=== PATIENT | male | born 1995 | race Caucasian/White ===

== ENCOUNTER 2020-01-13 16:49 | Emergency (ER) | payer MEDICAID, OTHER ==
[2020-01-13 17:26] LABS: BASOPHILS % (AUTO) 0.5 %; EOSINOPHILS # (AUTO) 0.1 10^3/uL (0.0-0.7); EOSINOPHILS % (AUTO) 1.8 %; HGB - HEMOGLOBIN 15.4 g/dL (14.0-18.0); LYMPHOCYTES # (AUTO) 1.5 10^3/uL (1.5-3.5); LYMPHOCYTES % (AUTO) 23.4 %; MEAN CORPUSCULAR HEMOGLOBIN 31.3 pg (27.0-31.0); MEAN CORPUSCULAR HGB CONC 33.3 g/dL (32.0-36.0); MEAN CORPUSCULAR VOLUME 94.1 fL (80.0-94.0); MEAN PLATELET VOLUME 12.3 fL (7.4-11.4); MONOCYTES # (AUTO) 0.6 10^3/uL (0.0-1.0); PLT - PLATELET COUNT 195 10^3/uL (130-450); RED BLOOD COUNT 4.92 10^6/uL (4.70-6.10); RED CELL DISTRIBUTION WIDTH 12.9 % (12.0-15.0); WHITE BLOOD COUNT 6.3 x10^3/uL (4.8-10.8)
[2020-01-13 17:42] LABS: ACETAMINOPHEN < 10 ug/mL (10-30); ALBUMIN 4.4 g/dL (3.2-5.5); ALBUMIN/GLOBULIN RATIO 1.6 (1.0-2.2); ALKALINE PHOSPHATASE 58 IU/L (42-121); ALT ALANINE AMINOTRANSFERASE 19 IU/L (10-60); AST ASPARTATE AMINOTRANSFERASE 17 IU/L (10-42); BILIRUBIN,TOTAL 1.3 mg/dL (0.2-1.0); BUN - BLOOD UREA NITROGEN 11 mg/dL (6-20); CALCIUM 9.4 mg/dL (8.5-10.3); CARBON DIOXIDE - CO2 29 mmol/L (21-32); CHLORIDE 102 mmol/L (101-111); CREATININE 0.9 mg/dL (0.6-1.2); GLUCOSE 104 mg/dL (70-100); LIPASE 29 U/L (22-51); SALICYLATE < 6.0 mg/dL; SODIUM 139 mmol/L (135-145); TOTAL PROTEIN 7.2 g/dL (6.7-8.2)
--- NOTE | 2020-01-13 18:31 | ED Physician Documentation ---
PD HPI MHE - Stated complaint Stated Complaint: DEPRESSION - Chief complaint Chief Complaint: MHE - History obtained from History obtained from: Patient - History of Present Illness Primary symptom: Depression Timing - onset: Today, How many weeks ago (several) Pain level max: 0 Pain level now: 0 Contributing factors: Work Recently seen: Not recently seen - Additional information Additional information: 24-year-old male presents to the emergency department stating that he has had increasing depression over the past several weeks. Has been dealing with depression for years. Does not feel actively suicidal and does not have a plan. He attempted to see his doctor yesterday, but his appointment was canceled. He is feeling more anxious today, particularly about stress at work. He does use marijuana, but rarely drinks alcohol. No cigarettes. No other drug use. Is not on any medications. Review of Systems Constitutional: denies: Fever, Chills GI: denies: Vomiting, Diarrhea Skin: denies: Rash Musculoskeletal: denies: Neck pain, Back pain Neurologic: denies: Generalized weakness, Focal weakness, Numbness, Seizure, Confused PD PAST MEDICAL HISTORY - Past Medical History Past Medical History: Yes Cardiovascular: None Respiratory: None Neuro: Migraines Endocrine/Autoimmune: None GI: None : None HEENT: None Psych: Depression, Anxiety Musculoskeletal: None Derm: None - Past Surgical History Past Surgical History: No - Present Medications Home Medications: Ambulatory Orders Medication Instructions Recorded Confirmed LORazepam [Ativan] 0.5 mg PO DAILY PRN #10 tablet 01/13/20 Sertraline [Zoloft] 50 mg PO DAILY #14 tablet 01/13/20 - Social History Does the pt smoke?: Yes Smoking Status: Current every day smoker ETOH Use: Beer Does the pt have substance abuse?: No Substance Use and Type: Marijuana - Immunizations Immunizations are current?: Yes PD ED PE NORMAL - Vitals Vital signs reviewed: Yes - General General: Alert and oriented X 3, No acute distress, Well developed/nourished - HEENT HEENT: PERRL, Moist mucous membranes - Neck Neck: Supple, no meningeal sign - Cardiac Cardiac: RRR, Strong equal pulses - Respiratory Respiratory: No respiratory distress, Clear bilaterally - Abdomen Abdomen: Soft, Non tender, Non distended - Derm Derm: Warm and dry - Neuro Neuro: Alert and oriented X 3 - Psych Psych: Normal mood, Normal affect Results - Vitals Vitals: Vital Signs - 24 hr 01/13/20 01/13/20 01/13/20 16:53 16:59 19:14 Temperature 36.6 C 36.6 C 36.2 C L Heart Rate 81 74 57 L Respiratory 16 18 14 Rate Blood Pressure 136/81 H 137/74 H 122/69 O2 Saturation 100 99 99 01/13/20 21:00 Temperature Heart Rate 64 Respiratory 16 Rate Blood Pressure 130/68 O2 Saturation 100 Oxygen O2 Source Room air - EKG (time done) 1714 Rate: Rate (enter#) (66) Rhythm: NSR [place]: Normal Intervals: Normal SC QRS: Normal Ischemia: Normal ST segments - Labs Labs: Laboratory Tests 01/13/20 01/13/20 01/13/20 17:22 17:22 17:22 WBC 6.3 RBC 4.92 Hgb 15.4 Hct 46.3 MCV 94.1 H MCH 31.3 H MCHC 33.3 RDW 12.9 Plt Count 195 MPV 12.3 H Neut # (Auto) 4.0 Lymph # (Auto) 1.5 [place] # (Auto) 0.6 Eos # (Auto) 0.1 Baso # (Auto) 0.0 Absolute Nucleated RBC 0.00 Nucleated RBC % 0.0 Sodium 139 Potassium 3.7 Chloride 102 Carbon Dioxide 29 Anion Gap 8.0 BUN 11 Creatinine 0.9 Estimated GFR (MDRD) 104 Glucose 104 H Calcium 9.4 Total Bilirubin 1.3 H AST 17 ALT 19 Alkaline Phosphatase 58 Total Protein 7.2 Albumin 4.4 Globulin 2.8 Albumin/Globulin Ratio 1.6 Lipase 29 TSH 0.62 Urine Color Urine Clarity Urine pH Ur Specific [place] Urine Protein Urine Glucose (UA) Urine Ketones Urine Occult Blood Urine Nitrite Urine Bilirubin Urine Urobilinogen Ur Leukocyte Esterase Ur Microscopic Review Urine Culture Comments Salicylates < 6.0 Urine Opiates Screen Ur Oxycodone Screen Urine Methadone Screen Ur Propoxyphene Screen Acetaminophen < 10 L Ur Barbiturates Screen Ur Tricyclics Screen Ur Phencyclidine Scrn Ur Amphetamine Screen U Methamphetamines Scrn U Benzodiazepines Scrn Urine Cocaine Screen U Cannabinoids Screen Ethyl Alcohol < 5.0 01/13/20 18:30 WBC RBC Hgb Hct MCV MCH MCHC RDW Plt Count MPV Neut # (Auto) Lymph # (Auto) [place] # (Auto) Eos # (Auto) Baso # (Auto) Absolute Nucleated RBC Nucleated RBC % Sodium Potassium Chloride Carbon Dioxide Anion Gap BUN Creatinine Estimated GFR (MDRD) Glucose Calcium Total Bilirubin AST ALT Alkaline Phosphatase Total Protein Albumin Globulin Albumin/Globulin Ratio Lipase TSH Urine Color YELLOW Urine Clarity CLEAR Urine pH 6.5 Ur Specific [place] <=1.005 Urine Protein NEGATIVE Urine Glucose (UA) NEGATIVE Urine Ketones NEGATIVE Urine Occult Blood NEGATIVE Urine Nitrite NEGATIVE Urine Bilirubin NEGATIVE Urine Urobilinogen 0.2 (NORMAL) Ur Leukocyte Esterase NEGATIVE Ur Microscopic Review NOT INDICATED Urine Culture Comments NOT INDICATED Salicylates Urine Opiates Screen NEGATIVE Ur Oxycodone Screen NEGATIVE Urine Methadone Screen NEGATIVE Ur Propoxyphene Screen NEGATIVE Acetaminophen Ur Barbiturates Screen NEGATIVE Ur Tricyclics Screen NEGATIVE Ur Phencyclidine Scrn NEGATIVE Ur Amphetamine Screen NEGATIVE U Methamphetamines Scrn NEGATIVE U Benzodiazepines Scrn NEGATIVE Urine Cocaine Screen NEGATIVE U Cannabinoids Screen POSITIVE H Ethyl Alcohol PD MEDICAL DECISION MAKING - ED course Complexity details: reviewed results, re-evaluated patient, considered differential, d/w patient ED course: Social work was consulted and the patient was given resources for counseling. Tele-psychiatry was consulted as well for medication management. Patient saw tele-psychiatry, they recommend Zoloft 50 mg daily as well as Ativan as needed for anxiety. Prescriptions were given to the patient. Patient is able to contract for safety. Patient counseled regarding signs and symptoms for which I believe and urgent re-evaluation would be necessary. Patient with good understanding of and agreement to plan and is comfortable going home at this time This document was made in part using voice recognition software. While efforts are made to proofread this document, sound alike and grammatical errors may occur. Departure - Departure Disposition: 01 Home, Self Care Clinical Impression: Anxiety Depression Qualifiers: Depression Type: unspecified Qualified Code(s): F32.9 - Major depressive disorder, single episode, unspecified Condition: Good Instructions: ED Depression Follow-Up: Tony Keith MD [Provider Admit Priv/Credential] - Within 1 week Prescriptions: LORazepam [Ativan] 0.5 mg PO DAILY PRN #10 tablet PRN Reason: Anxiety Sertraline [Zoloft] 50 mg PO DAILY #14 tablet Comments: Follow-up with the counselors as directed by social work today. Return if you worsen. Follow-up with your doctor early next week as well to discuss medications. Crisis Line and is available to talk to someone [email or web address] is also available to chat with someone online if you prefer. There are also many resources on this website and apps for your phone to help with your mental health You can also text the word START to [phone] to chat with someome via text.
[2020-01-13 18:40] LABS: BILIRUBIN,URINE NEGATIVE (NEGATIVE); GLUCOSE, URINE (UA) NEGATIVE (NEGATIVE); KETONES,URINE (UA) NEGATIVE (NEGATIVE); LEUKOCYTE ESTERASE, URINE NEGATIVE (NEGATIVE); MUDS CUTOFF CONCENTRATIONS CUTOFF CONC BELOW:; NITRITE,URINE NEGATIVE (NEGATIVE); OCCULT BLOOD,URINE NEGATIVE (NEGATIVE); PH,URINE 6.5 PH (5.0-7.5); PROTEIN,URINE NEGATIVE (NEGATIVE); UROBILINOGEN,URINE 0.2 (NORMAL) E.U./dL (NORMAL)
[2020-01-13 18:42] LABS: CLARITY,URINE CLEAR (CLEAR)
[2020-01-13 18:51] LABS: AMPHETAMINE SCREEN,URINE NEGATIVE (NEGATIVE); BENZODIAZEPINES SCREEN, URINE NEGATIVE (NEGATIVE); COCAINE SCREEN URINE NEGATIVE (NEGATIVE); METHADONE SCREEN, URINE NEGATIVE (NEGATIVE); METHAMPHETAMINES SCREEN, URINE NEGATIVE (NEGATIVE); OPIATE SCREEN, URINE NEGATIVE (NEGATIVE); OXYCODONE SCREEN, URINE NEGATIVE (NEGATIVE); PROPOXYPHENE SCREEN, URINE NEGATIVE (NEGATIVE); TRICYCLIC ANTIDEPRESSANT,URINE NEGATIVE (NEGATIVE)
--- NOTE | 2020-01-13 22:34 | TELEPSYCH PHYS NOTE ---
Telepsych Note - CHIEF COMPLAINT/HX OF PRESENT ILLNESS Cheif Complaint and History of Present Illness: Name: Nghia Young : 89. 24M Date: 01/14/20 Time: 12:25AM Location of patient: [facility] Location of doctor: [facility] Length of consult: 25 This evaluation was conducted via telepsychiatry with the assistance of onsite staff Chief Complaint: Depression History of Present Illness: Pt seen via televideo with the help of onsite staff. Pt is a24 yo male who reports a hx of depression, no formal psychiatric history. Pt presents to the ED, self referred due to several week period of worsening depressive sxs. Pt cites sxs inclusive of waxing and waning depressed mood, low energy, feeling run down and heavy. Also notes increased anxiety at times. States he has been experiencing intermittent SI for the past few weeks. States he will get the fleeting thought in my head that I should disappear or put a bullet in my head. States the thoughts are scary to him. States the thoughts are always short lived. States he never entertains the thoughts and adamant that he would never act on the thoughts. He cites his gf, grandmother, mother and himself all as strong deterrents. States, I would commit myself way before I ever came close to doing that. I know suicide is not an answer to anything. States he came to the hospital to get resources and medication recommendations. States he attempted to get help from his PCP however his appt was cancelled. Yesterday he was unable to go to work for the first time due to a panic attack. States he has a good support system in his mother, grandmother and gf and have talked to them openly about how he is feeling. Also admits he has talked to them about his fleeting SI thoughts and has promised them he would not act on it. He does admit he owns a gun and pistol however states they are kept at his grandmothers home where he was staying temporarily. States he has no plans to retrieve them and states they are in a locked box and he will give his grandmother the benito. Triggers : Work stress - Relationship of great grandmother in April who raised him Recent sudden change in housing. Of note, bond underwriter was able to speak with the pts grandmother, Emily #[phone]. who confirmed that the pt has talked to her about his depression. She reports no immediate safety concerns. States he in general has waves of not feeling well typically triggered by stress. States has difficulty coping at times. And thens states other times he seems okay and happy. States she does not believe he would ever harm himself. States they have talked about his emotions and he has mentioned the fleeting thoughts and also has been adamant that is not something he would ever do. States she feels he wants help and treatment. States no hx of suicide attempts that she is aware of. States she does have his guns and will ask for the benito to the locked box. She reported no immediate safety concerns and indicated that she wanted him to get reccs for medications and outpt referrals. On ROS, pt denies AVHs, delusions nor HI.. He denies current SI. There is no current evidence of imminent danger to self. Pt denies current SI. Admits to intermittent SI, no intent nor desire to act States thoughts are fleeting and pop into his head. He able to cites strong deterrents against suicide. He is highly motivated for treatment. No previous hx of suicidality nor attempts. No previous psychiatric history. He does own guns which he and his grandmother confirms are located in her home and he states he will give her the benito to the locked box. Pts grandmother reported no immediate safety concerns. Collateral: Hospital staff and EMR. Unable to reach pts Girlfriend - Fread Jackson - #[phone], Unable to reach pts Mother Minnie [phone]. Spoke to the pts grandmother Grandmother Emily #[phone].SEE HPI. SI/attempts/Self harm: Denies hx of attempts nor SIB. HI/Violence: Denies HI. Trauma history: None reported. Sex/human trafficking: not reported Access to guns: NKDA Legal: denies Psychiatric History/Treatment History: No previous psychiatric history Drug/Alcohol History: cannabis in the past Medical History: headaches Medications & Freq: migraine headache medication Allergies: NKDA Sleep: decreased Family Psych History/History of suicide: mother with depression, anxiety and reports mother attempted suicide 2-3 years prior. Social History Relationship status: in relationship Education: not reported Stressors: work, relationship Strengths/supports: grandmother Mental Status Exam: Appearance and attire: hospital attire Attitude and behavior: cooperative Affect and mood: depressed, anxious / appropriate to content Association and thought processes: linear, open Thought content: Denies delusions. Denies HI. Denies current SI Perception: Denies AVHs Sensorium, memory, and orientation: AxOx3 Intellectual functioning: average Insight and judgment: fair - SI/HI/SELF HARM SI/HI/SELF HARM (CURRENT OR HISTORY OF):: SI - PSYCHIATRIC HX/TREATMENT HX Psychiatric: Depression, Anxiety - DRUG/ALCOHOL HX Substance Use and Type: Marijuana ETOH Use: Beer - MEDICAL HX Neurological History: Migraines Eyes, Ears, Nose, Throat: None Cardiovascular: None Respiratory: None Skin: None Endocrine/Autoimmune: None Gastrointestinal: None Urinary: None Musculoskeletal: None Blood Disorders: None - TREATMENT/PHARMACOLOGICAL RECOMMENDATION Treatment - Pharmacological - Therapy Recommendations: Diagnosis: Unspecified Depressive disorder, Unspecified Anxiety Disorder Impression/Risk Assessment: There is no current evidence of acute dangerousness. Pt denies Si/Hi nor current psychotic sxs. Per pt and her mother, Denies current SI however appears to be minimizing. She also noted to bond underwriter that she was not relieved that the attempt was unsuccessful. Pt is s/p attempt and ongoing mood lability, depression and anxiety. She presents as a high risk for safety and now requires acute inpt psychiatric admission. Pt is NOT voluntary for inpt treatment. Treatment Recommendations: Pt can be discharged from a psychiatric standpoint Please start and provide Zoloft 50mg po Daily #14 Ativan 0.5mg Daily PRN # 10 Pt will require outpt psychiatric referral outpt for follow up within 1 week of his ED discharge for medication check and follow up. Pt is aware that should sxs worsen to call 911 or to return to the ED - TIME SPENT & PROVIDER LOCATION Telepsych consultation conducted via videoconferencing: Yes List names and roles of persons who participated in consult: williams young Telepsych Provider Location: [place] Time Telepsych consult began: 12:25 Time Telepsych consult completed: 12:55
[2020-01-13 23:19] VITALS: BP 129/85
== END 2020-01-13 22:55 | disposition home or self-care (01) ==
LOC: ED 16:49
DX: F41.9 Anxiety disorder, unspecified (principal); F32.9 Major depressive disorder, single episode, unspecified; R45.851 Suicidal ideations; R94.31 Abnormal electrocardiogram [ECG] [EKG]; F17.200 Nicotine dependence, unspecified, uncomplicated
CPT/HCPCS: 36415; 80053; 80306; 80307; 80320; 80329; 81001; 81003; 83690; 84443; 85025; 87086; 93005; 99283; 99284

== ENCOUNTER 2021-09-22 17:41 | Outpatient (CLI) | payer OTHER ==
[2021-09-24 13:07] LABS: HIV AG/AB 4TH GEN NON-REACTIVE (NON-REACTIVE)
== END 2021-09-22 17:42 | disposition home or self-care (01) ==
LOC: LAB.N 17:41
PROVIDERS: ATTEND Nurse Practitioner
DX: Z11.4 Encounter for screening for human immunodeficiency virus [HIV] (principal)
CPT/HCPCS: 36415; 87389